=== PATIENT | male | born 1970 | race Two or more races ===

== ENCOUNTER 2022-11-26 12:02 | Emergency (ER) | payer MEDICAID ==
[~2022-11-26] VITALS: Ht 172.7 cm; Wt 98.0 kg
[2022-11-26 12:19] VITALS: BP 127/75
[2022-11-26] MEDS ORDERED: CEPH250T PO (14:21)
[2022-11-26] MEDS ORDERED: SULF1TAB49 PO (14:21)
== END 2022-11-26 14:37 | disposition home or self-care (01) ==
LOC: ER 12:03
DX: L03.116 Cellulitis of left lower limb (principal); Z79.1 Long term (current) use of non-steroidal anti-inflammatories (NSAID)
CPT/HCPCS: 99283

== ENCOUNTER 2024-01-27 06:16 | Emergency (ER) | payer MEDICAID ==
[~2024-01-27] VITALS: Ht 172.7 cm; Wt 92.2 kg
[2024-01-27 06:20] VITALS: BP 136/73; PULSE 92; TEMP 98; O2SAT 96
[2024-01-27 06:35] VITALS: RESP 16
[2024-01-27] MEDS: naproxen 500mg tablet PO ONE (07:34)
[2024-01-27] MEDS: cyclobenzaprine 10mg tablet PO ONE (07:34)
== END 2024-01-27 07:53 | disposition home or self-care (01) ==
LOC: ER 06:16
DX: M47.812 Spondylosis without myelopathy or radiculopathy, cervical region (principal); M54.2 Cervicalgia; R51.9 Headache, unspecified; F17.200 Nicotine dependence, unspecified, uncomplicated; W19.XXXA Unspecified fall, initial encounter; Y93.89 Activity, other specified; Y92.89 Other specified places as the place of occurrence of the external cause; Y99.8 Other external cause status
CPT/HCPCS: 70450; 72125; 99284; L0172